=== PATIENT | male | born 1960 | race African-American/Black ===

== ENCOUNTER 2021-02-20 14:39 | Emergency (ER) | payer SELFPAY ==
[~2021-02-20] VITALS: Ht 185 cm; Wt 72.7 kg
[~2021-02-20 14:39] MED LIST: CODE118S2 PO; NAPR-243 PO
[2021-02-20 14:40] VITALS: BP 149/105
--- NOTE | 2021-02-20 14:54 | ED General ---
General Chief Complaint: General Problems/Pain Stated Complaint: METH INJECTION Source of Information: Patient Exam Limitations: No Limitations History of Present Illness Date Seen by Provider: Feb 20, 2021 Time Seen by Provider: 14:54 Initial Comments Burning in his hands and concerned that his skin looks different on his hands after using methamphetamine. Timing/Duration: 1-2 Days Severity: Moderate Associated Systoms: Denies Symptoms Allergies and Home Medications Allergies Coded Allergies: No Known Drug Allergies (Verified Allergy, Mild, 11/26/09) Home Medications No Active Prescriptions or Reported Meds Patient Home Medication List Home Medication List Reviewed: Yes Review of Systems Review of Systems Constitutional: see HPI EENTM: see HPI Respiratory: no symptoms reported Cardiovascular: no symptoms reported Genitourinary: no symptoms reported Musculoskeletal: no symptoms reported Skin: no symptoms reported Psychiatric/Neurological: No Symptoms Reported Hematologic/Lymphatic: No Symptoms Reported Immunological/Allergic: no symptoms reported Past Whctdsc-Izyhjo-Aqddhs Hx Seasonal Allergies Seasonal Allergies: No Past Medical History Orthopedic Reproductive Disorders: No Physical Exam Vital Signs Capillary Refill : Height, Weight, BMI Height: 6'1" Weight: 190lbs. oz. 86.877129mn; 23.75 BMI Method:Stated General Appearance: No Apparent Distress, WD/WN, Anxious Eyes: Bilateral Eye Normal Inspection, Bilateral Eye PERRL, Bilateral Eye EOMI HEENT: PERRL/EOMI, TMs Normal, Normal ENT Inspection Neck: Full Range of Motion, Normal Inspection Respiratory: No Accessory Muscle Use, No Respiratory Distress Cardiovascular: Regular Rate, Rhythm, Normal Peripheral Pulses Gastrointestinal: Normal Bowel Sounds, Non Tender, Soft Extremity: Normal Inspection, No Calf Tenderness Neurologic/Psychiatric: Alert, Oriented x3 Skin: Normal Color, Warm/Dry Progress/Results/Core Measures Suspected Sepsis SIRS Temperature: Pulse: Respiratory Rate: Blood Pressure / Mean: Results/Orders My Orders Orders - ANALIA LAUREANO APRN Cbc With Automated Diff (02/20/21 14:47) Comprehensive Metabolic Panel (02/20/21 14:47) Vital Signs/I&O Capillary Refill : Departure Impression Primary Impression: Methamphetamine use Disposition: 01 HOME, SELF-CARE Condition: Stable Departure-Patient Inst. Decision time for Depature: 14:54 Referrals: NO,LOCAL PHYSICIAN (PCP) Primary Care Physician Patient Instructions: Drug Abuse Treatment Scripts No Active Prescriptions or Reported Meds ANALIA LAUREANO APRN Feb 20, 2021 14:54
== END 2021-02-20 14:58 | disposition home or self-care (01) ==
LOC: EDUNIT# 14:39 → ER 14:42
DX: F15.90 Other stimulant use, unspecified, uncomplicated (principal)
CPT/HCPCS: 99283

== ENCOUNTER 2021-08-18 08:06 | Emergency (ER) | payer MEDICARE ==
[~2021-08-18] VITALS: Ht 185.5 cm; Wt 74.8 kg
--- NOTE | 2021-08-18 08:24 | ED Integumentary General ---
General Stated Complaint: BUG BITE Source: patient Exam Limitations: no limitations History of Present Illness Date Seen by Provider: Aug 18, 2021 Time Seen by Provider: 08:03 Initial Comments Patient to the ER by EMS from home with chief complaint that he has been in his apartment of the past 3 weeks and has been having a lot of itching and feeling of small bugs or worms on his skin especially on his feet. He has been wearing plastic bags on his feet to try and keep them off of him. He says he does not routinely use recreational methamphetamines as well as he smokes and drinks. He says he went to his doctor at [facility] and they told him that he would have to bring in one of the bugs for them to examine. He has not called an cumulative effects analyst. He says he feels OCD because he has to constantly wash his feet. Allergies and Home Medications Allergies Coded Allergies: No Known Drug Allergies (Verified Allergy, Mild, 11/26/09) Patient Home Medication List Home Medication List Reviewed: Yes No Active Prescriptions or Reported Meds Review of Systems Review of Systems Constitutional: No chills, No diaphoresis EENTM: No ear discharge, No hearing loss Respiratory: No cough, No short of breath Cardiovascular: No chest pain, No palpitations Gastrointestinal: No abdominal pain, No nausea, No vomiting Genitourinary: No discharge, No dysuria Musculoskeletal: No back pain, No joint pain Skin: pruritus, rash All Other Systems Reviewed Negative Unless Noted: Yes Past Xxadjeb-Chnefv-Qyqeta Hx Patient Social History Tobacco Use?: Yes Tobacco type used: Cigarettes Use of E-Cig and/or Vaping dev: No Substance use?: Yes Substance type: Methamphetamine, Marijuana Alcohol Use?: Yes Alcohol type: Hard Liquor Seasonal Allergies Seasonal Allergies: No Past Medical History Orthopedic Reproductive Disorders: No Physical Exam Vital Signs Capillary Refill : General Appearance: WD/WN, no apparent distress HEENT: PERRL/EOMI, pharynx normal Neck: full range of motion, supple, normal inspection Cardiovascular: normal peripheral pulses, regular rate, rhythm Respiratory: no respiratory distress, no accessory muscle use Gastrointestinal: normal bowel sounds, non tender Extremities: normal inspection, normal capillary refill Neurologic/Psychiatric: alert, normal mood/affect, oriented x 3 Skin: other Skin Problem Location: lower extremities (Bilateral feet) Skin Problem Character: other (Dry itchy scaly feet with a small shallow ulcer subacute between the first and second toe on the right foot. Malodorous.) Progress/Results/Core Measures Progress Progress Note : Time: 08:21 Progress Note It is reasonable to treat the patient with topical antifungals. We will give her a couple rounds of permethrin as well. Suspect that this may be some form of psychogenic parasitosis but he certainly does have some superficial tinea pedis but we could attempt to treat and give him some relief of symptoms. Recommended Benadryl for the itching as well. Departure Impression Primary Impression: Tinea pedis of both feet Additional Impression: Scabies Disposition: HOME, SELF-CARE Condition: Stable Departure-Patient Inst. Decision time for Depature: 08:24 Referrals: NO,LOCAL PHYSICIAN (PCP/Family) Primary Care Physician Patient Instructions: Athlete's Foot (DC), Scabies (DC) Add. Discharge Instructions: Apply the foot cream twice a day just a small pea-sized amount to where it completely rubs into the skin and disappears. Apply permethrin from the neck down to your toes at night and wear it for about 8 hours. In the morning you can shower it off. Repeat the application of permethrin in 2 weeks. Clean your house, wash her linens and dry on normal settings. Consider consultation with a cumulative effects analyst. If you would like help discontinuing your use of methamphetamines you can contact [facility] as they have addiction medicine doctors available to assist you. Scripts Permethrin (Permethrin) 60 Gm Cream..g. 60 GM TP ONCE for 14 Days, #2 EA 0 Refills Prov: KAREN STACK 08/18/21 Clotrimazole (Lotrimin AF) 12 Gm Cream..g. 12 GM TP BID for 30 Days, #2 EA 0 Refills Prov: KAREN STACK 08/18/21 KAREN STACK Aug 18, 2021 08:24
[2021-08-18] MEDS ORDERED: CLOT12CR TP (08:27)
[2021-08-18] MEDS ORDERED: PERM60CR4 TP (08:27)
[2021-08-18 08:35] VITALS: BP 161/86
== END 2021-08-18 08:35 | disposition home or self-care (01) ==
LOC: EDUNIT# 08:06 → ER 08:07
DX: B35.3 Tinea pedis (principal); B86 Scabies; Z72.0 Tobacco use
CPT/HCPCS: 99283

== ENCOUNTER 2021-12-13 23:09 | Emergency (ER) | payer MEDICARE ==
[~2021-12-13] VITALS: Ht 185.5 cm; Wt 74.8 kg
[~2021-12-13 23:09] MED LIST changes: +CLOT12CR TP; +PERM60CR4 TP
--- NOTE | 2021-12-14 00:14 | ED Psychosocial ---
General Chief Complaint: Psych/Social Disorder Stated Complaint: HALLUCINATIONS Source: patient History of Present Illness Date Seen by Provider: December 14, 2021 Time Seen by Provider: 00:01 Initial Comments PT ARRIVES VIA EMS PT STATES THAT "SOME YOUNGSTERS ARE HARRASSING ME AND PUTTING BUGS IN MY WINDOWS AND THEY'RE GETTING IN MY CLOTHES AND IN MY SKIN AND THEY'RE IN MY FURNITURE" AND NOW THEY ARE CRAWLING OUT OF HIS SKIN PT POINTS TO PALM AND STATES THAT HE CAN SEE AND FEEL THE WORMS AND BUGS CRAWLING UNDER AND OUT OF HIS SKIN WENT TO THE POLICE DEPT TO GET HELP WITH THE BUGS--"TO STOP THOSE KIDS FROM PU TTING BUGS IN HIS HOUSE"-- AND EMS WAS CALLED. THEN LATER STATES THAT IT IS WORMS THAT ARE CRAWLING IN HIS SKIN AND COMING OUT AND HE CONSTANTLY HAS TO PULL THEM OUT "LIKE A SHOESTRING THAT JUST KEEPS COMING OUT ALL OVER" AND CONSTANTLY PEEL THEM OFF HIS SKIN AND IT TAKES 2 HOURS TO GET THEM OFF, AND HE HAS TO CLEAN HIS FEET AND HANDS ALL THE TIME OR THEY WOULD BE COVERED WITH THEM. DOES NOT DESCRIBE ITCHING, ONLY A CRAWLING SENSATION STATES HE CAN SEE THE WORMS CRAWL ACROSS HIS BED AND ON THE FLOORS AND THE FURNITURE. PT USES METHAMPHETAMINES AND THC ON DAILY BASIS PT ALSO DRINKS ALCOHOL ON A DAILY BASIS, STATES HE "HAD A LITTLE BIT" TODAY PT HAS BEEN HERE IN ER FOR SAME/SIMILAR SYMPTOMS. WAS GIVEN RXS FOR PERMETHRIN AND CLOTRIMAZOLE ON PRIOR VISIT, BUT DID NOT GET THEM FILLED. STATES HE COULD NOT AFFORD THEM. PCP: [facility]E Allergies and Home Medications Allergies Coded Allergies: No Known Drug Allergies (Verified Allergy, Mild, 11/26/09) Patient Home Medication List Home Medication List Reviewed: Yes Clotrimazole (Lotrimin AF) 12 Gm Cream..g., 12 GM TP BID Prescribed by: KAREN STACK on 08/18/21826 Hydroxyzine Pamoate (Hydroxyzine Pamoate) 50 Mg Capsule, 50 MG PO Q6H PRN for ANXIETY Prescribed by: CAROLANN GRAY on 12/14/21 0046 Permethrin (Permethrin) 60 Gm Cream..g., 60 GM TP ONCE Prescribed by: KAREN STACK on 08/18/21826 Review of Systems Constitutional: no symptoms reported EENTM: no symptoms reported Respiratory: no symptoms reported Cardiovascular: no symptoms reported Gastrointestinal: no symptoms reported Genitourinary: no symptoms reported Musculoskeletal: no symptoms reported Skin: see HPI Psychiatric/Neurological: See HPI Past Ormjoci-Ytolyy-Dvrpwn Hx Patient Social History Tobacco Use?: Yes Tobacco type used: Cigarettes Substance use?: Yes Substance type: Methamphetamine, Marijuana Alcohol Use?: Yes Alcohol Frequency: Daily Seasonal Allergies Seasonal Allergies: No Past Medical History Surgeries: No Respiratory: No Cardiac: No Neurological: No Reproductive Disorders: No Genitourinary: No Gastrointestinal: No Musculoskeletal: No Endocrine: No HEENT: No Cancer: No Psychosocial: Yes (POLYSUBSTANCE ABUSE) Integumentary: No Blood Disorders: No Physical Exam Vital Signs - First Documented 12/14/21 00:00 Temp 36.5 Pulse 94 Resp 20 B/P (MAP) 184/120 (141) Pulse Ox 100 O2 Delivery Room Air Capillary Refill : Height, Weight, BMI Height: 6'1" Weight: 190lbs. oz. 86.148419qf; 21.00 BMI Method:Stated General Appearance: WD/WN, no apparent distress, thin, other (PT IS CALM AND COOPERATIVE. ) HEENT: PERRL/EOMI Neck: normal inspection Respiratory: normal breath sounds Cardiovascular: regular rate, rhythm Gastrointestinal: soft Extremities: normal inspection, normal capillary refill Neurologic/Psychiatric: no motor/sensory deficits, alert, oriented x 3, other (TACTILE HALLUCINATIONS) Appearance/Memory: no memory impairment Behavior/Eye Contact: cooperative, normal speech Thoughts/Hallucinations: tactile hallucinations Skin: normal color (PT IS BLACK), warm/dry, other (NO EVIDENCE OF ANY SKIN INFESTATION. HAS VERY MINIMAL SCALING TO SOLES OF FEET--PT STATES THESE ARE THE WORMS THAT HE CONSTANTLY HAS TO PEEL OFF HIS SKIN. DOES HAVE A FEW SCABBED SO RES ON LOWER LEGS, WITH EXTENSIVE AREAS OF PINPOINT HYPOPIGMENTATION DIFFUSELY TO BILATERAL LEGS. NO SIGNS OF INFECTION TO SKIN. ) Progress/Results/Core Measures Results/Orders Lab Results Laboratory Tests Test 12/14/21 00:30 12/14/21 01:05 Range/Units White Blood Count 4.9 4.3-11.0 10^3/uL Red Blood Count 3.71 L 4.30-5.52 10^6/uL Hemoglobin 12.6 L 13.3-17.7 g/dL Hematocrit 37 L 40-54 % Mean Corpuscular Volume 98 80-99 fL Mean Corpuscular Hemoglobin 34 25-34 pg Mean Corpuscular Hemoglobin Concent 35 32-36 g/dL Red Cell Distribution Width 12.0 10.0-14.5 % Platelet Count 382 130-400 10^3/uL Mean Platelet Volume 9.0 9.0-12.2 fL Immature Granulocyte % (Auto) 0 % Neutrophils (%) (Auto) 67 42-75 % Lymphocytes (%) (Auto) 21 12-44 % Monocytes (%) (Auto) 6 0-12 % Eosinophils (%) (Auto) 5 0-10 % Basophils (%) (Auto) 1 0-10 % Neutrophils # (Auto) 3.3 1.8-7.8 10^3/uL Lymphocytes # (Auto) 1.0 1.0-4.0 10^3/uL Monocytes # (Auto) 0.3 0.0-1.0 10^3/uL Eosinophils # (Auto) 0.2 0.0-0.3 10^3/uL Basophils # (Auto) 0.0 0.0-0.1 10^3/uL Immature Granulocyte # (Auto) 0.0 0.0-0.1 10^3/uL Sodium Level 142 135-145 MMOL/L Potassium Level 3.6 3.6-5.0 MMOL/L Chloride Level 103 98-107 MMOL/L Carbon Dioxide Level 26 21-32 MMOL/L Anion Gap 13 5-14 MMOL/L Blood Urea Nitrogen 17 7-18 MG/DL Creatinine 1.06 0.60-1.30 MG/DL Estimat Glomerular Filtration Rate 80 BUN/Creatinine Ratio 16 Glucose Level 86 70-105 MG/DL Calcium Level 9.3 8.5-10.1 MG/DL Corrected Calcium 8.9 8.5-10.1 MG/DL Total Bilirubin 1.0 0.1-1.0 MG/DL Aspartate Amino Transf (AST/SGOT) 17 5-34 U/L Alanine Aminotransferase (ALT/SGPT) 11 0-55 U/L Alkaline Phosphatase 61 40-136 U/L Total Protein 7.6 6.4-8.2 GM/DL Albumin 4.5 3.2-4.5 GM/DL Serum Alcohol < 10 <10 MG/DL Urine Opiates Screen NEGATIVE NEGATIVE Urine Oxycodone Screen NEGATIVE NEGATIVE Urine Methadone Screen NEGATIVE NEGATIVE Urine Propoxyphene Screen NEGATIVE NEGATIVE Urine Barbiturates Screen NEGATIVE NEGATIVE Ur Tricyclic Antidepressants Screen NEGATIVE NEGATIVE Urine Phencyclidine Screen NEGATIVE NEGATIVE Urine Amphetamines Screen POSITIVE H NEGATIVE Urine Methamphetamines Screen POSITIVE H NEGATIVE Urine Benzodiazepines Screen NEGATIVE NEGATIVE Urine Cocaine Screen NEGATIVE NEGATIVE Urine Cannabinoids Screen NEGATIVE NEGATIVE My Orders Orders - CAROLANN GRAY DO Drug Screen Stat (Urine) (12/14/21 00:01) Alcohol (12/14/21 00:06) Cbc With Automated Diff (12/14/21 00:06) Comprehensive Metabolic Panel (12/14/21 00:06) Hydroxyzine Cap/Tab (Vistaril) (12/14/21 01:30) Medications Given in ED Current Medications Medications Dose Ordered Sig/Suze Route Start Time Stop Time Status Last Admin Dose Admin Hydroxyzine Pamoate 50 mg ONCE ONCE PO 12/14/21 01:30 12/14/21 01:31 DC 12/14/21 01:37 50 MG Vital Signs/I&O 12/14/21 12/14/21 00:00 01:35 Temp 36.5 36.3 Pulse 94 88 Resp 20 16 B/P (MAP) 184/120 (141) 164/100 Pulse Ox 100 100 O2 Delivery Room Air Room Air Progress Progress Note : Progress Note PT CONSTANTLY PICKING AT SKIN AND STATING HE CAN SEE THE WORMS CRAWLING OUT OF HIS SKIN AND THAT HE IS PULLING THEM OUT NOW. THERE ARE NO VISIBLE INSECTS /WORMS, ETC. ANYWHERE ON PATIENT OR HIS CLOTHING. Departure Impression Primary Impression: PSYCHOGENIC PARASITOSIS Additional Impressions: Methamphetamine use Alcohol abuse Delusions of parasitosis Disposition: HOME, SELF-CARE Condition: Stable Departure-Patient Inst. Decision time for Depature: 01:30 Referrals: [facility] Patient Instructions: ALCOHOL AND SUBSTANCE ABUSE, Drug Abuse and Drug Addicti on (DC), Methamphetamine Add. Discharge Instructions: FOLLOW UP WITH [facility] THIS WEEK FOR FURTHER CARE. All discharge instructions reviewed with patient and/or family. Voiced understanding. Scripts Hydroxyzine Pamoate (Hydroxyzine Pamoate) 50 Mg Capsule 50 MG PO Q6H PRN for ANXIETY, #15 CAP Prov: CAROLANN GRAY DO 12/14/21 CAROLANN GRAY DO December 14, 2021 00:14
[2021-12-14 00:44] LABS: BASOPHILS % (AUTO) 1 % (0-10); EOSINOPHILS # (AUTO) 0.2 10^3/uL (0.0-0.3); EOSINOPHILS % (AUTO) 5 % (0-10); HEMATOCRIT 37 % (40-54); HEMOGLOBIN 12.6 g/dL (13.3-17.7); LYMPHOCYTES % (AUTO) 21 % (12-44); MEAN CORPUSCULAR HEMOGLOBIN 34 pg (25-34); MEAN CORPUSCULAR HGB CONC 35 g/dL (32-36); MEAN CORPUSCULAR VOLUME 98 fL (80-99); MONOCYTES # (AUTO) 0.3 10^3/uL (0.0-1.0); MONOCYTES % (AUTO) 6 % (0-12); NEUTROPHILS # (AUTO) 3.3 10^3/uL (1.8-7.8); NEUTROPHILS % (AUTO) 67 % (42-75); PLATELET COUNT 382 10^3/uL (130-400); WHITE BLOOD COUNT 4.9 10^3/uL (4.3-11.0)
[2021-12-14] MEDS ORDERED: HYDR50CA3 PO (00:46)
[2021-12-14 00:55] LABS: ALBUMIN 4.5 GM/DL (3.2-4.5); CHLORIDE 103 MMOL/L (98-107); POTASSIUM 3.6 MMOL/L (3.6-5.0); SODIUM 142 MMOL/L (135-145)
[2021-12-14 00:57] LABS: CALCIUM 9.3 MG/DL (8.5-10.1)
[2021-12-14 00:58] LABS: GLUCOSE 86 MG/DL (70-105); TOTAL PROTEIN 7.6 GM/DL (6.4-8.2)
[2021-12-14 00:59] LABS: CARBON DIOXIDE 26 MMOL/L (21-32)
[2021-12-14 01:01] LABS: ALKALINE PHOSPHATASE 61 U/L (40-136); CREATININE SERUM 1.06 MG/DL (0.60-1.30); GFR ESTIMATED 80
[2021-12-14 01:02] LABS: BUN/CREATININE RATIO 16
[2021-12-14 01:04] LABS: ALANINE AMINOTRANSFERASE 11 U/L (0-55)
[2021-12-14 01:25] LABS: AMPHETAMINE SCREEN, URINE POSITIVE (NEGATIVE); BARBITURATE SCREEN URINE NEGATIVE (NEGATIVE); BENZODIAZEPINES SCREEN URINE NEGATIVE (NEGATIVE); CANNABINOID SCREEN, URINE NEGATIVE (NEGATIVE); COCAINE SCREEN URINE NEGATIVE (NEGATIVE); METHADONE STAT NEGATIVE (NEGATIVE); OPIATE SCREEN URINE NEGATIVE (NEGATIVE); OXYCODONE STAT NEGATIVE (NEGATIVE); PROPOXYPHENE STAT NEGATIVE (NEGATIVE); TRICYCLIC ANTIDEPRESSANTS SCRE NEGATIVE (NEGATIVE)
[2021-12-14] MEDS ORDERED: hydrOXYzine (VISTARIL/ATARAX) 25 MG capsule/tablet PO ONE (01:30)
[2021-12-14 01:35] VITALS: BP 164/100
== END 2021-12-14 01:40 | disposition home or self-care (01) ==
LOC: EDUNIT# 23:09 → ER 23:11
DX: R44.3 Hallucinations, unspecified (principal); F06.2 Psychotic disorder with delusions due to known physiological condition; F10.10 Alcohol abuse, uncomplicated; F15.10 Other stimulant abuse, uncomplicated; F17.210 Nicotine dependence, cigarettes, uncomplicated; Y90.0 Blood alcohol level of less than 20 mg/100 ml
CPT/HCPCS: 80053; 80306; 85025; 99283; G0480; 36415; 80320

== ENCOUNTER 2022-02-01 10:20 | Emergency (ER) | payer MEDICARE ==
[~2022-02-01] VITALS: Ht 185 cm; Wt 79.3 kg
[~2022-02-01 10:20] MED LIST changes: +HYDR50CA3 PO
--- NOTE | 2022-02-01 11:26 | ED Psychosocial ---
General Chief Complaint: Substance Abuse Stated Complaint: HALLUCINATIONS Nursing Triage Note: PT PRESENTS TO ED VIA EMS FROM HOME WITH COMPLAINTS OF VISUAL HALLUCINATIONS OF MEAL WORMS CRAWLING OUT OF HIS VENTS AND ON HIS HEAD. WHEN PT WAS INFORMED THAT HE DID NOT HAVE ANY BUGS/WORMS ON HIS HEAD BY EMS HE REPORTED TO THEM HE MUST BE "TRIPPING" BECAUSE HE SMOKED METH YESTERDAY. PT REPORTS HE CURRENTLY HAS NO COMPLAINTS AND FEELS "REBORN." (ZO ED ANDA) History of Present Illness Date Seen by Provider: Feb 01, 2022 Time Seen by Provider: 11:00 Initial Comments 61 year old male presents via EMS. Patient reports visual hallucinations upon awakening this morning, he felt as though he could see bugs and worms on his head and a/c vents. He reports using methamphetamines yesterday, he verbalizes that he had anxiety but is now aware that there were not bugs. He denies any current visual or auditory hallucinations. He denies any thoughts to harm himself or others. At this point he is requesting discharge from the emergency department if he has no acute health issues. patient is calm and agreeable to exam. He has no complaints at this time. Timing/Duration: this morning Severity: mild Associated Symptoms: denies symptoms (ZO DE ANDA) Allergies and Home Medications Allergies Coded Allergies: No Known Drug Allergies (Verified Allergy, Mild, 11/26/09) Patient Home Medication List Home Medication List Reviewed: Yes (ZO DE ANDA) Clotrimazole (Lotrimin AF) 12 Gm Cream..g., 12 GM TP BID Prescribed by: KAREN STACK on 08/18/21826 Hydroxyzine Pamoate (Hydroxyzine Pamoate) 50 Mg Capsule, 50 MG PO Q6H PRN for ANXIETY Prescribed by: CAROLANN GRAY on 12/14/21 0046 Permethrin (Permethrin) 60 Gm Cream..g., 60 GM TP ONCE Prescribed by: KAREN STACK on 08/18/21826 Review of Systems Constitutional: no symptoms reported, see HPI Psychiatric/Neurological: See HPI, Anxiety (earlier today) (ZO DE ANDA) All Other Systems Reviewed Negative Unless Noted: Yes (ZO DE ANDA) Past Xtoehgd-Rimoye-Fjewpq Hx Patient Social History Tobacco Use?: Yes Tobacco type used: Cigars Smoking Status: Current Someday Smoker Substance use?: Yes Substance type: Methamphetamine Alcohol Use?: Yes Alcohol type: Hard Liquor Alcohol Frequency: Once in a while Pt feels they are or have been: No (ZO DE ANDA) Immunizations Up To Date First/Initial COVID19 Vaccinat: 2020 Second COVID19 Vaccination Gato: 2020 Third COVID19 Vaccination Date: N/A (ZO DE ANDA) Seasonal Allergies Seasonal Allergies: No (ZO DE ANDA) Past Medical History Surgery/Hospitalization HX: HTN Surgeries: No Respiratory: No Cardiac: No Neurological: No Reproductive Disorders: No Genitourinary: No Gastrointestinal: No Musculoskeletal: No Endocrine: No HEENT: No Cancer: No Psychosocial: Yes (POLYSUBSTANCE ABUSE) Integumentary: No Blood Disorders: No (ZO DE ANDA) Family Medical History Reviewed Nursing Family Hx (ZO DE ANDA) Physical Exam Vital Signs - First Documented 02/01/22 10:37 Temp 35.9 Pulse 108 Resp 16 B/P (MAP) 164/104 (124) Pulse Ox 97 (VLAD HOFFMANN MD) Capillary Refill : Less Than 3 Seconds (OZ DE ANDA) Height, Weight, BMI Height: 6'1" Weight: 190lbs. oz. 86.157630uy; 23.00 BMI Method:Stated General Appearance: WD/WN, no apparent distress HEENT: PERRL/EOMI, normal ENT inspection, TMs normal, pharynx normal Neck: non-tender, full range of motion, supple, normal inspection Respiratory: chest non-tender, lungs clear, normal breath sounds Cardiovascular: normal peripheral pulses, regular rate, rhythm Gastrointestinal: normal bowel sounds, non tender, soft Neurologic/Psychiatric: no motor/sensory deficits, alert, normal mood/affect, oriented x 3 Appearance/Memory: appropriate appearance, appropriate insight, neat Behavior/Eye Contact: cooperative, good eye contact Thoughts/Hallucinations: normal thought pattern Skin: normal color, warm/dry (ZO DE ANDA) Suicide Risk Suicide Riks Low Suicide Risk Level []Suicidal Ideation WITHOUT method, intent, plan or behavior more than a month ago []]Modifiable risk factors and strong protective factors []No reported history of suicidal ideation or behavior []Patient reports/exhibits symptoms consistent with psychosis []Patient reports a plan that would be unrealistic/impossible to complete and intent []Suicide attempt prior to arrival (Indicates at LEAST Low Suicide Risk, consider other risk factors) Moderate Suicide Risk Level: []Suicidal ideation with method, WITHOUT plan, intent or behavior in the past month []Multiple risk factors and few protective factors []Patient reports intent to follow through on plan to end life if allowed to leave hospital, and has attempted to elope from the hospital High Suicide Risk Level: [] Suicidal ideation with intent or intent with a plan in the past month [] Patient has harmed self or attempted suicide while in the hospital [] Patient has hx of or current Command Auditory hallucinations to harm self or others that they follow without hesitation [] Patient refuses to disclose plan, and indicates intent to complete [] Patient reports plan that is possible to accomplish and/or has means to complete Risk factors supporting recommendation: [] Non-compliance with treatment (acute or chronic) [] Patient has access to or owns firearms and/or stockpiled medications [] Hx Impulsive behavior [] Pending incarceration or homelessness [] Sexual abuse [] Family history and/or exposure to suicide [] Adverse childhood experiences [] Exposure to violence or negative socio-political cultural, and economic forces [] Current or hx of substance use/abuse [] Chronic physical pain or other acute medical problem (AIDS, COPD, Cancer, etc) [] Perceived burden on family or others [] Patient has attempted to elope [] Unable to answer and/or unable to identify [] Refuses to agree to a safety plan Protective Factors supporting recommendation: [] Identifies reasons for living [] Future plans/goals [] Engaged in work or School [] Good family support network [] Good social support network [] Responsibility to family [] Belief that suicide is immoral, against their protestant beliefs [] High spirituality and involvement in advent community [] Fear of or dying due to pain and suffering [] Established outpt psychiatric services [] Unable to answer and/or unable to identify (ZO DE ANDA) Progress/Results/Core Measures Results/Orders Vital Signs/I&O 02/01/22 02/01/22 10:37 12:05 Temp 35.9 Pulse 108 80 Resp 16 18 B/P (MAP) 164/104 (124) 157/119 Pulse Ox 97 97 (VLAD HOFFMANN MD) Blood Pressure Mean: 124 Departure Impression Primary Impression: Methamphetamine use Disposition: 01 HOME, SELF-CARE Condition: Improved Departure-Patient Inst. Decision time for Depature: 11:20 (ZO DE ANDA) Referrals: [facility],LOCAL PHYSICIAN (PCP) Primary Care Physician Patient Instructions: Drug Abuse and Drug Addiction (DC) Add. Discharge Instructions: Increase water intake today and tomorrow. Follow-up with your primary care provider regarding your blood pressure. Consider rehab or discontinue use of methamphetamines. Return to the hospital for emergency needs. All discharge instructions reviewed with patient and/or family. Voiced understanding. ATTENDING PHYSICIAN NOTE: I was physically present as attending physician in the emergency department during the care of this patient, but I was not directly involved in the decision making or delivery of care for this patient. (VLAD HOFFMANN MD) ZO DE ANDA Feb 01, 2022 11:26 VLAD HOFFMANN MD Feb 01, 2022 17:11
[2022-02-01 12:05] VITALS: BP 157/119
== END 2022-02-01 12:05 | disposition home or self-care (01) ==
LOC: EDUNIT# 10:20 → ER 10:28
DX: F15.10 Other stimulant abuse, uncomplicated (principal); F17.290 Nicotine dependence, other tobacco product, uncomplicated; Z28.310 Unvaccinated for COVID-19
CPT/HCPCS: 99281

== ENCOUNTER 2022-04-01 15:21 | Emergency (ER) | payer MEDICARE | END 2022-04-01 16:00 | disposition left against medical advice (07) | LOC: EDUNIT# 15:21 → ER 15:25 | DX: M54.2 Cervicalgia (principal); R11.0 Nausea ==

== ENCOUNTER → 2022-07-08 | Emergency (ER) | payer MEDICARE ==
[~2022-07-08] VITALS: Ht 185 cm; Wt 79.3 kg
--- NOTE | 2022-07-08 09:33 | ED General ---
General Chief Complaint: Abdominal/GI Problems Stated Complaint: ABD PAIN Nursing Triage Note: pt presents to ed via pov from home with complaitns of constipation x 2 days. states he had a small bm today and yesterday. pt also reports he thinks his apartment is infested with worm like snakes that have been biting him and getting under his skin. he states he can hear them hissing at night. (DREW PERDOMO) History of Present Illness Date Seen by Provider: Jul 08, 2022 Time Seen by Provider: 09:00 Initial Comments 61 yo male presents to the ED with chief complaint of "worms under his skin". Sa tanisha this has been going on for 8 months and that he somebody he knows is coming into his house and infesting the place with worms. Says that these worms are nocturnal and occur throughout his body especially around areas where there is hair. He says they come off when he scrubs his body but denies any changes to detergents or soap. Denies any itching, redness, skin color changes. Pt has not tried any cream or medications for his sx but endorses meth use to help with the "worms under his skin". No other complaints. (DREW PERDOMO) Allergies and Home Medications Allergies Coded Allergies: No Known Drug Allergies (Verified Allergy, Mild, 11/26/09) Patient Home Medication List Home Medication List Reviewed: Yes (DREW PERDOMO) Clotrimazole (Lotrimin AF) 12 Gm Cream..g., 12 GM TP BID Prescribed by: KAREN STACK on 08/18/21826 Hydroxyzine Pamoate (Hydroxyzine Pamoate) 50 Mg Capsule, 50 MG PO Q6H PRN for ANXIETY Prescribed by: CAROLANN GRAY on 12/14/21 0046 Permethrin (Permethrin) 60 Gm Cream..g., 60 GM TP ONCE Prescribed by: KAREN STACK on 08/18/21826 Review of Systems Review of Systems Constitutional: No chills, No diaphoresis, No dizziness, No fever, No malaise, No weakness EENTM: no symptoms reported Respiratory: No cough, No dyspnea on exertion, No short of breath Cardiovascular: No chest pain, No palpitations Gastrointestinal: No abdominal pain, No constipation, No diarrhea, No dysphagia, No hematemesis Genitourinary: no symptoms reported Musculoskeletal: no symptoms reported Skin: No change in color, No change in hair/nails, No dryness, No lesions, No lumps, No pruritus, No rash; other ("worms under the skin") Psychiatric/Neurological: Other ("Pt says he has no psychiatric diagnosis") Hematologic/Lymphatic: No Symptoms Reported Immunological/Allergic: no symptoms reported Hard to get accurate ROS based on patients current hallucinogenic state (DREW PERDOMO) Past Nwfytkr-Yeuavl-Cskymb Hx Patient Social History Tobacco Use?: Yes Tobacco type used: Cigars Smoking Status: Current Everyday Smoker Smokeless Tobacco Frequency: Never a User Substance use?: Yes Substance type: Methamphetamine Alcohol Use?: Yes Alcohol type: Hard Liquor Alcohol Frequency: Daily Pt feels they are or have been: No (DREW PERDOMO) Immunizations Up To Date First/Initial COVID19 Vaccinat: 2020 Second COVID19 Vaccination Gato: 2020 Third COVID19 Vaccination Date: N/A (DREW PERDOMO) Seasonal Allergies Seasonal Allergies: No (DREW PERDOMO) Past Medical History Surgery/Hospitalization HX: HTN Surgeries: No Respiratory: No Cardiac: No Neurological: No Reproductive Disorders: No Genitourinary: No Gastrointestinal: No Musculoskeletal: No Endocrine: No HEENT: No Cancer: No Psychosocial: Yes (POLYSUBSTANCE ABUSE) Integumentary: No Blood Disorders: No (DREW PERDOMO) Physical Exam Vital Signs Vital Signs - First Documented 07/08/22 08:39 Temp 35.8 Pulse 94 Resp 18 B/P (MAP) 175/118 (137) Pulse Ox 100 (SAIRA BOX MD) Vital Signs Capillary Refill : Less Than 3 Seconds (DREW PERDOMO) Height, Weight, BMI Height: 6'1" Weight: 190lbs. oz. 86.332383ht; 23.00 BMI Method:Stated General Appearance: No Apparent Distress, WD/WN HEENT: PERRL/EOMI, TMs Normal, Normal ENT Inspection, Pharynx Normal, Scleral Icterus (L), Scleral Icterus (R) Neck: Full Range of Motion, Normal Inspection, Non Tender, Supple Respiratory: Chest Non Tender, Lungs Clear, Normal Breath Sounds, No Accessory Muscle Use, No Respiratory Distress Cardiovascular: Regular Rate, Rhythm, No Edema, No Gallop, No JVD, No Murmur, Normal Peripheral Pulses Gastrointestinal: Normal Bowel Sounds, No Organomegaly, No Pulsatile Mass, Non Tender, Soft Back: Normal Inspection, No CVA Tenderness, No Vertebral Tenderness Extremity: Normal Capillary Refill, Normal Inspection, Normal Range of Motion, Non Tender Neurologic/Psychiatric: Alert, Oriented x3, No Motor/Sensory Deficits, Normal 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, 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, Other (Hallucinogenic state ) Skin: Normal Color, Warm/Dry Lymphatic: No Adenopathy (DREW PERDOMO) Progress/Results/Core Measures Suspected Sepsis SIRS Temperature: Pulse: 94 Respiratory Rate: 18 Blood Pressure 175 /118 Mean: 137 (DREW PERDOMO) Results/Orders Vital Signs/I&O 07/08/22 08:39 Temp 35.8 Pulse 94 Resp 18 B/P (MAP) 175/118 (137) Pulse Ox 100 (SAIRA BOX MD) Vital Signs/I&O Capillary Refill : Less Than 3 Seconds (DREW PERDOMO) Blood Pressure Mean: 137 Progress Note : Time: 09:50 Progress Note Patient seen and examined by me I have reviewed the medical student's note and agree with HPI and physical exam. 61-year-old male long history of methamphetamine use, psychogenic parasitosis. Presents with similar complaints as previous. Concerned for "worms" that are along white strips that he is continuously pulling out of his body. Patient adamantly denies any history of mental health issues. He has never been to [facility]. He denies fevers, chills, nausea vomiting. He is not short of breath or having any pain. He is concerned about needing a "report" for the police so that he can have the people who are placing these worms under his skin arrested. No suicidal or homicidal thoughts. No other hallucinations are reported. He is quite defensive when it is suggested that these are hallucinations or possibly related to his methamphetamine use. Physical exam is unremarkable. Skin is soft, no open wounds. Almost of vitiligo type pattern to the skin. Heart is regular, respirations are even and nonlabored. It is notable that he has quite elevated blood pressure in the 160s over 120 range. He denies using any medications for hypertension. 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 Plan of care: Patient will be referred to [facility] health. I am going to suggest some chye-ngl-evvspsg change to his creams and lotions that he uses. No clinical or objective findings to warrant laboratory studies or other imaging. (SAIRA BOX MD) Departure Impression Primary Impression: psychogenic parasitosis Additional Impressions: History of methamphetamine use Elevated blood pressure reading Disposition: 01 HOME, SELF-CARE Condition: Stable Departure-Patient Inst. Decision time for Depature: 09:53 (SAIRA BOX MD) Referrals: [facility] [place] PHYSICIAN (PCP) Primary Care Physician Patient Instructions: High Blood Pressure ED Add. Discharge Instructions: You need to follow-up with [facility] for long-term management and further evaluation of the worms under your skin. Also you likely need a Blood Pressure pill. You can get khwv-jbu-lwrcnvv CLOTRIMAZOLE OINTMENT which can help with the worms. Also change your lotion to EUCERIN CREAM. DO NOT bathe more than twice a day. Use a gentle soap such as Jamarcus and Jamarcus. This may prevent the worms from being attracted to your skin. Benadryl 1-2 pills as needed if you have itching. Do not do Meth, this can worsen the problem also. Return to the emergency department for any new, concerning or emergent c omplaints. Verification and Attestation of Medical Student E/M Service A medical student performed and documented this service in my presence. I reviewed and verified all information documented by the medical student and made modifications to such information, when appropriate. I personally performed the physical exam and medical decision making. Saira Box, Jul 08, 2022,09:56 (SAIRA BOX MD) DREW PERDOMO Jul 08, 2022 09:33 SAIRA BOX MD Jul 08, 2022 09:56
[2022-07-08 10:03] VITALS: BP 170/106
== END ==
LOC: EDUNIT# 08:27 → ER 08:31
DX: F22 Delusional disorders (principal); I10 Essential (primary) hypertension; F17.290 Nicotine dependence, other tobacco product, uncomplicated; Z87.898 Personal history of other specified conditions
CPT/HCPCS: 99281

== ENCOUNTER 2022-07-27 14:27 | Emergency (ER) | payer MEDICARE ==
[~2022-07-27] VITALS: Ht 185 cm; Wt 80.0 kg
[2022-07-27 14:39] VITALS: BP 155/99
--- NOTE | 2022-07-27 15:00 | ED General ---
General Chief Complaint: Head/Cervical Problems Stated Complaint: FALL Nursing Triage Note: PT ARRIVED PER EMS, PT STATES HIT HEAD. PT ON DOOR FACING, PT HAS TOWEL ON TOP OF HEAD NO REDNESS, OR ABRASION NOTED. PT IS VERY ANXIOUS, STATES JUST GOT ANXIOUS AND CALLED EMS. PT DENIES LOC OR PAIN AT THIS X. PROVIDER IN ROOM TO SPEAK TO PT. PT ON PHONE UPON ARRIVAL AND STAYS ON PHONE SINCE ADMISSION, STATES IS SPEAKING TO . History of Present Illness Date Seen by Provider: Jul 27, 2022 Time Seen by Provider: 14:30 Initial Comments 61-year-old male presents for panic attack after falling. He reports losing his balance falling and hitting her right side of his head on the door jam. He called EMS. During assessment patient is on the phone with his . He reports he is fine and would like to be discharged. He is cooperative and has no complaints of headache or other concerns. He is on no medications. He has no abrasions or lacerations. Timing/Duration: 1/2 Hour Associated Systoms: Denies Symptoms Allergies and Home Medications Allergies Coded Allergies: No Known Drug Allergies (Verified Allergy, Mild, 11/26/09) Patient Home Medication List Home Medication List Reviewed: Yes Clotrimazole (Lotrimin AF) 12 Gm Cream..g., 12 GM TP BID Prescribed by: KAREN STACK on 08/18/21826 Hydroxyzine Pamoate (Hydroxyzine Pamoate) 50 Mg Capsule, 50 MG PO Q6H PRN for ANXIETY Prescribed by: CAROLANN GRAY on 12/14/21 0046 Permethrin (Permethrin) 60 Gm Cream..g., 60 GM TP ONCE Prescribed by: KAREN STACK on 08/18/21826 Review of Systems Review of Systems Constitutional: no symptoms reported, see HPI Respiratory: no symptoms reported, see HPI Cardiovascular: no symptoms reported, see HPI Genitourinary: no symptoms reported, see HPI Musculoskeletal: no symptoms reported, see HPI Skin: no symptoms reported, see HPI All Other Systems Reviewed Negative Unless Noted: Yes Past Rblslpv-Lpcsbb-Jcmurw Hx Patient Social History Tobacco Use?: Yes Tobacco type used: Cigarettes Smoking Status: Current Everyday Smoker Substance use?: No Alcohol Use?: Yes Alcohol type: Hard Liquor Alcohol Frequency: Daily Pt feels they are or have been: No Immunizations Up To Date First/Initial COVID19 Vaccinat: 2020 Second COVID19 Vaccination Gato: 2020 Third COVID19 Vaccination Date: N/A Seasonal Allergies Seasonal Allergies: No Past Medical History Surgery/Hospitalization HX: HTN Surgeries: No Respiratory: No Cardiac: No Neurological: No Reproductive Disorders: No Genitourinary: No Gastrointestinal: No Musculoskeletal: No Endocrine: No HEENT: No Cancer: No Psychosocial: Yes (POLYSUBSTANCE ABUSE) Integumentary: No Blood Disorders: No Family Medical History Reviewed Nursing Family Hx Physical Exam Vital Signs Vital Signs - First Documented 07/27/22 14:30 Temp 36.2 Pulse 87 Resp 18 B/P (MAP) 155/99 (117) Pulse Ox 98 Capillary Refill : Less Than 3 Seconds Height, Weight, BMI Height: 6'1" Weight: 190lbs. oz. 86.999322gg; 23.00 BMI Method:Stated General Appearance: No Apparent Distress, WD/WN, Anxious Eyes: Bilateral Eye Normal Inspection, Bilateral Eye PERRL, Bilateral Eye EOMI HEENT: PERRL/EOMI, TMs Normal, Normal ENT Inspection, Pharynx Normal Neck: Full Range of Motion, Normal Inspection, Non Tender, Supple Respiratory: Chest Non Tender, Lungs Clear, Normal Breath Sounds Cardiovascular: Regular Rate, Rhythm, No Edema, No Murmur, Normal Peripheral Pulses Gastrointestinal: Normal Bowel Sounds, Non Tender, Soft Neurologic/Psychiatric: Alert, Oriented x3, No Motor/Sensory Deficits Skin: Normal Color, Warm/Dry Progress/Results/Core Measures Suspected Sepsis SIRS Temperature: Pulse: 87 Respiratory Rate: 18 Blood Pressure 155 /99 Mean: 117 Results/Orders Vital Signs/I&O 07/27/22 07/27/22 14:30 14:39 Temp 36.2 36.2 Pulse 87 87 Resp 18 18 B/P (MAP) 155/99 (117) 155/99 Pulse Ox 98 98 Capillary Refill : Less Than 3 Seconds Blood Pressure Mean: 117 Progress Note : Time: 14:30 Progress Note Patient seen and evaluated. Patient declined need for any medications or further assessments 1439 patient came out of exam room and reports he wants to leave, will not wait for paperwork or discharge. Signed AMA. Stated he needs to walk to his 's work. He then stated "there is a cyber attack. I see the red beam" Offered to re-assess, but patient requested discharge. Encouraged to return, if he has further concerns. Departure Impression Primary Impression: Fall Qualified Codes: W19.XXXA - Unspecified fall, initial encounter Additional Impression: Panic attack Disposition: AGAINST MEDICAL ADVICE Condition: Stable Departure-Patient Inst. Decision time for Depature: 14:39 Referrals: NO,LOCAL PHYSICIAN (PCP) Primary Care Physician ZO DE ANDA Jul 27, 2022 15:00
== END 2022-07-27 14:39 | disposition left against medical advice (07) ==
LOC: EDUNIT# 14:27 → ER 14:29
DX: Z04.3 Encounter for examination and observation following other accident (principal); F41.0 Panic disorder [episodic paroxysmal anxiety]; F17.210 Nicotine dependence, cigarettes, uncomplicated; W01.198A Fall on same level from slipping, tripping and stumbling with subsequent striking against other object, initial encounter
CPT/HCPCS: 99283

== ENCOUNTER 2022-09-22 07:40 | Emergency (ER) | payer MEDICARE | END 2022-09-22 08:10 | disposition left against medical advice (07) | LOC: EDUNIT# 07:40 → ER 07:42 | DX: R69 Illness, unspecified (principal) ==

== ENCOUNTER 2022-10-04 13:39 | Emergency (ER) | payer MEDICARE ==
[~2022-10-04] VITALS: Ht 185 cm; Wt 75.0 kg
[2022-10-04 13:41] VITALS: BP 179/98
== END 2022-10-04 13:52 | disposition left against medical advice (07) ==
LOC: EDUNIT# 13:39 → ER 13:40
DX: R03.0 Elevated blood-pressure reading, without diagnosis of hypertension (principal)
CPT/HCPCS: 99283

== ENCOUNTER 2022-10-10 13:39 | Emergency (ER) | payer MEDICARE ==
[~2022-10-10] VITALS: Ht 185 cm; Wt 77.0 kg
[2022-10-10 14:00] VITALS: BP 139/77
--- NOTE | 2022-10-10 14:58 | ED Integumentary General ---
General Chief Complaint: Bite-Animal/Human/Insect Stated Complaint: PAIN IN BOTH FEET Nursing Triage Note: Patient ambulatory to ER w c/o bug bites to both feet and legs. 05/07 pain level. Source: patient Exam Limitations: no limitations History of Present Illness Date Seen by Provider: Oct 10, 2022 Time Seen by Provider: 14:53 Initial Comments Patient is a 61-year-old male who presents to the emergency department today with a chief complaint of concern for bugs under his skin causing pain in his feet. He also complains of them in his arms and hands, scalp as well. He has had previous visits to the ER for the similar complaint. He does not follow with a primary care physician, does not have any mental health support. He is insistent that there are things coming out of his skin related to the carpet in his home. He has been treated here in the past for scabies. He continues to complain of discomfort and pain. I asked about lotions and creams he states nothing works. He is insistent that he sees little white "strings" that he can pull out of his skin related to the bugs. Complains of significant pain to his feet. He states Tylenol and ibuprofen do not help his symptoms. He is quite agitated and frustrated. No other complaints of fevers, chills, cough. No urinary or GI complaints. Timing/Duration: getting worse Severity: severe Location: scalp, face, hands, feet, extremities, genitalia Possible Cause: other ("bigs in the carpet") Associated Symptoms: change in skin texture (per patient) Allergies and Home Medications Allergies Coded Allergies: No Known Drug Allergies (Verified , 11/26/09) Patient Home Medication List Home Medication List Reviewed: Yes Clotrimazole (Lotrimin AF) 12 Gm Cream..g., 12 GM TP BID Prescribed by: KAREN STACK on 08/18/21 0868 Hydroxyzine Pamoate (Hydroxyzine Pamoate) 50 Mg Capsule, 50 MG PO Q6H PRN for ANXIETY Prescribed by: CAROLANN GRAY on 12/14/21 0046 Naproxen (Naprosyn) 500 Mg Tablet, 500 MG PO BID Prescribed by: SAIRA BOX on 10/10/22 1512 Permethrin (Permethrin) 60 Gm Cream..g., 60 GM TP ONCE Prescribed by: KAREN STACK on 08/18/21 0827 Triamcinolone Acetonide (Triamcinolone Acetonide 0.025% Ointment) 0.025 % Oint...g., 1 APPLIC TP DAILY Prescribed by: SAIRA BOX on 10/10/22 1512 Review of Systems Review of Systems Constitutional: see HPI EENTM: no symptoms reported Respiratory: no symptoms reported Cardiovascular: no symptoms reported Gastrointestinal: no symptoms reported Genitourinary: no symptoms reported Musculoskeletal: joint pain (Pain in both feet at the forefoot) Skin: lesions, other (Complains of rash) All Other Systems Reviewed Negative Unless Noted: Yes Past Hhymfnr-Begflf-Jgkpvl Hx Patient Social History Tobacco Use?: Yes Tobacco type used: Cigars Smoking Status: Current Everyday Smoker Substance use?: Yes Substance type: Methamphetamine Alcohol Use?: Yes Alcohol Frequency: Daily Immunizations Up To Date First/Initial COVID19 Vaccinat: unknown Second COVID19 Vaccination Gato: 2020 Third COVID19 Vaccination Date: N/A COVID19 Vaccine 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 Seasonal Allergies Seasonal Allergies: No Past Medical History Surgery/Hospitalization HX: HTN Surgeries: No Respiratory: No Cardiac: No Neurological: No Reproductive Disorders: No Genitourinary: No Gastrointestinal: No Musculoskeletal: No Endocrine: No HEENT: No Cancer: No Psychosocial: Yes (POLYSUBSTANCE ABUSE) Integumentary: No Blood Disorders: No Physical Exam Vital Signs Vital Signs - First Documented 10/10/22 14:00 Temp 36.8 Pulse 118 Resp 16 B/P (MAP) 139/77 (97) Pulse Ox 98 O2 Delivery Room Air Capillary Refill : Less Than 3 Seconds General Appearance: WD/WN, no apparent distress, thin HEENT: PERRL/EOMI Cardiovascular: regular rate, rhythm Respiratory: lungs clear, normal breath sounds, no respiratory distress Extremities: normal range of motion, normal inspection, no pedal edema, no calf tenderness, normal capillary refill Neurologic/Psychiatric: arc cutter II-XII nml as tested, no motor/sensory deficits, alert, normal mood/affect, oriented x 3 Skin: normal color, warm/dry, other (Skin changes consistent with vitiligo. No erythema. No rashes. No lesions concerning for infection.) Progress/Results/Core Measures Results/Orders My Orders Orders - SAIRA BOX MD Triamcinolone 0.025% Cream (Kenalog 0.02 (10/10/22 15:08) Naproxen Tablet (Naprosyn Tablet) (10/10/22 15:15) Vital Signs/I&O 10/10/22 14:00 Temp 36.8 Pulse 118 Resp 16 B/P (MAP) 139/77 (97) Pulse Ox 98 O2 Delivery Room Air Blood Pressure Mean: 97 Progress Progress Note : Time: 15:00 Progress Note Had a discussion with the patient regarding his concern for parasites. Offered a cream, I planned on using a very low-dose triamcinolone. Also naproxen for pain. Patient seemed interested in this treatment however shortly after I talked to him it was noted that he picked up all of his belongings and walked out of the department. I am concerned that he has significant underlying mental health disorder causing his delusions of parasitosis. He will not hear any talk of this. Patient left the department without discharge instructions. Departure Impression Primary Impression: Parasitosis Disposition: AGAINST MEDICAL ADVICE Condition: Against Medical Advice Departure-Patient Inst. Decision time for Depature: 15:10 Referrals: [facility]/CORY MOLINA,LOCAL PHYSICIAN (PCP) Primary Care Physician Patient Instructions: Insect Bites and Stings (DC) Add. Discharge Instructions: Use the triamcinolone cream once a day to the affected areas. Naproxen 1 tablet twice a day with food for the next 5 days for pain. Please call [facility] and schedule a follow-up appointment for further evaluation and management of this skin condition. Come back to the emergency room for any new, concerning or emergent complaints. Scripts Naproxen (Naprosyn) 500 Mg Tablet 500 MG PO BID, #10 TAB 0 Refills Prov: SAIRA BOX MD 10/10/22 Triamcinolone Acetonide (Triamcinolone Acetonide 0.025% Ointment) 0.025 % Oint...g. 1 APPLIC TP DAILY, #80 GM Prov: SAIRA BOX MD 10/10/22 SAIRA BOX MD Oct 10, 2022 14:58
[2022-10-10] MEDS ORDERED: TRIAMCINOLONE 0.025% CR (KENALOG) 15 GM TUBE TOP STA (15:08)
[2022-10-10] MEDS ORDERED: NAPR-1071 PO (15:12)
[2022-10-10] MEDS ORDERED: TRIA80OI TP (15:12)
[2022-10-10] MEDS ORDERED: NAPROXEN 250 MG (NAPROSYN) TABLET PO ONE (15:15)
== END 2022-10-10 15:15 | disposition left against medical advice (07) ==
LOC: EDUNIT# 13:39 → ER 13:42
DX: B89 Unspecified parasitic disease (principal); F17.210 Nicotine dependence, cigarettes, uncomplicated
CPT/HCPCS: 99283

== ENCOUNTER 2022-11-04 19:38 | Emergency (ER) | payer MEDICARE ==
[~2022-11-04] VITALS: Ht 185 cm; Wt 74.0 kg
[~2022-11-04 19:38] MED LIST changes: +NAPR-1071 PO; +TRIA80OI TP
--- NOTE | 2022-11-04 19:45 | ED General ---
General Chief Complaint: General Problems/Pain Stated Complaint: JAYNE FEET SWELLING Source of Information: Patient Exam Limitations: Other (mental health issues) History of Present Illness Date Seen by Provider: Nov 04, 2022 Time Seen by Provider: 19:45 Initial Comments Vamshi is a 61-year-old male who is concerned today about swelling in his feet. He states for the last several weeks he feels like his feet have been swollen. He points to the area of the right great toe as the etiology of most of his pain. He has had several visits to the emergency department in the past for various somatic complaints. He denies fevers, chills, chest pain or shortness of breath. Walking on his feet makes the pain worse. He is concerned that his shoes may be "too tight". Has not taken any medications for the pain. Timing/Duration: 1 Week (1 to 2 weeks) Severity: Moderate Modifying Factors: improves with Other (Walking worsens pain) Associated Systoms: Denies Symptoms Allergies and Home Medications Allergies Coded Allergies: No Known Drug Allergies (Verified , 11/26/09) Patient Home Medication List Home Medication List Reviewed: Yes Clotrimazole (Lotrimin AF) 12 Gm Cream..g., 12 GM TP BID Prescribed by: KAREN STACK on 08/18/21826 Hydroxyzine Pamoate (Hydroxyzine Pamoate) 50 Mg Capsule, 50 MG PO Q6H PRN for ANXIETY Prescribed by: CAROLANN GRAY on 12/14/21 0046 Naproxen (Naprosyn) 500 Mg Tablet, 500 MG PO BID Prescribed by: SAIRA BOX on 10/10/22 151 Permethrin (Permethrin) 60 Gm Cream..g., 60 GM TP ONCE Prescribed by: KAREN STACK on 08/18/2127 Triamcinolone Acetonide (Triamcinolone Acetonide 0.025% Ointment) 0.025 % Oint...g., 1 APPLIC TP DAILY Prescribed by: SAIRA BOX on 10/10/22 151 Review of Systems Review of Systems Constitutional: see HPI EENTM: no symptoms reported Respiratory: no symptoms reported Cardiovascular: no symptoms reported Gastrointestinal: no symptoms reported Genitourinary: no symptoms reported Musculoskeletal: joint pain (Anterior foot pain bilaterally) Skin: no symptoms reported All Other Systems Reviewed Negative Unless Noted: Yes Past Bleczwq-Cubycp-Qpmbjy Hx Immunizations Up To Date First/Initial COVID19 Vaccinat: unknown Second COVID19 Vaccination Gato: 2020 Third COVID19 Vaccination Date: N/A Seasonal Allergies Seasonal Allergies: No Past Medical History Surgery/Hospitalization HX: HTN Surgeries: No Respiratory: No Cardiac: No Neurological: No Reproductive Disorders: No Genitourinary: No Gastrointestinal: No Musculoskeletal: No Endocrine: No HEENT: No Cancer: No Psychosocial: Yes (POLYSUBSTANCE ABUSE) Integumentary: No Blood Disorders: No Physical Exam Vital Signs Vital Signs - First Documented 11/04/22 19:45 Temp 35.9 Pulse 100 Resp 20 B/P (MAP) 155/98 (117) Pulse Ox 99 O2 Delivery Room Air Capillary Refill : Height, Weight, BMI Height: 6'1" Weight: 190lbs. oz. 86.765760su; 22.00 BMI Method:Stated General Appearance: No Apparent Distress, Thin Eyes: Bilateral Eye Normal Inspection, Bilateral Eye PERRL, Bilateral Eye EOMI Respiratory: No Accessory Muscle Use, No Respiratory Distress Cardiovascular: Regular Rate, Rhythm Extremity: Normal Capillary Refill, Normal Inspection, Normal Range of Motion, Non Tender, No Calf Tenderness, No Pedal Edema, Other (Tenderness to palpation over the distal metatarsals of both feet. He has a very large bunion on the right foot. No erythema over the skin of either feet. No edema. Brisk capillary refill.) Neurologic/Psychiatric: Alert, No Motor/Sensory Deficits, Normal Mood/Affect Skin: Normal Color, Warm/Dry Progress/Results/Core Measures Suspected Sepsis SIRS Temperature: Pulse: Respiratory Rate: Blood Pressure / Mean: Results/Orders My Orders Orders - SAIRA BOX MD Naproxen Tablet (Naprosyn Tablet) (11/04/22 20:00) Medications Given in ED Vital Signs/I&O 11/04/22 11/04/22 19:45 20:47 Temp 35.9 Pulse 100 82 Resp 20 18 B/P (MAP) 155/98 (117) 129/90 Pulse Ox 99 97 O2 Delivery Room Air Capillary Refill : Departure Impression Primary Impression: Foot pain, bilateral Additional Impression: Bunion of great toe of right foot Disposition: 01 HOME, SELF-CARE Condition: Stable Departure-Patient Inst. Decision time for Depature: 20:29 Referrals: [facility]/CORY MOLINA,LOCAL PHYSICIAN (PCP) Primary Care Physician Patient Instructions: Bunion Add. Discharge Instructions: Take zitq-zjp-ypdtrfz generic Aleve (naproxen) 2 tablets twice daily as needed for pain. Always take this with food. Wear good supportive shoes that are wide at the toe. For increased swelling, redness or fever please return to the emergency room for reevaluation. Follow up with your primary care doctor. SAIRA BOX MD Nov 04, 2022 19:45
[2022-11-04] MEDS ORDERED: NAPROXEN 250 MG (NAPROSYN) TABLET PO ONE (20:00)
[2022-11-04 20:47] VITALS: BP 129/90
== END 2022-11-04 20:48 | disposition home or self-care (01) ==
LOC: EDUNIT# 19:38 → ER 19:40
DX: M79.672 Pain in left foot (principal); M21.611 Bunion of right foot
CPT/HCPCS: 99283

== ENCOUNTER 2023-01-25 10:06 | Emergency (ER) | payer MEDICARE ==
[~2023-01-25] VITALS: Ht 185.5 cm; Wt 68.0 kg
[2023-01-25] MEDS ORDERED: TETANUS,DIPTH,PERTUSS P/F (BOOSTRIX) 0.5 ML VIAL IM ONE (10:45)
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
--- NOTE | 2023-01-25 11:41 | Diagnostic Imaging Report ---
HISTORY: Right forearm pain TECHNIQUE: 2 views of the right forearm. COMPARISON: None FINDINGS: No acute fracture is seen in the right forearm. Alignment appears normal and joint spaces are preserved. IMPRESSION:. No acute osseous abnormalities seen in the right forearm. Dictated by: Dictated on workstation # [id number]
[2023-01-25] MEDS ORDERED: AUGMENTIN 875 MG TAB (AMOXICILLIN/CLAVULANATE) PO STA (15:26)
[2023-01-25] MEDS ORDERED: AMOX1TAB12 PO (15:31)
[2023-01-25 17:17] VITALS: BP 165/118
== END 2023-01-25 17:17 | disposition home or self-care (01) ==
LOC: EDUNIT# 10:06 → ER 10:09
DX: S02.841A Fracture of lateral orbital wall, right side, initial encounter for closed fracture (principal); S02.31XA Fracture of orbital floor, right side, initial encounter for closed fracture; S02.40CA Maxillary fracture, right side, initial encounter for closed fracture; S02.40EA Zygomatic fracture, right side, initial encounter for closed fracture; S50.11XA Contusion of right forearm, initial encounter; H11.31 Conjunctival hemorrhage, right eye; F17.200 Nicotine dependence, unspecified, uncomplicated; Z23 Encounter for immunization; Y00.XXXA Assault by blunt object, initial encounter; Y92.89 Other specified places as the place of occurrence of the external cause
CPT/HCPCS: 70450; 70486; 73090; 90715

== ENCOUNTER 2023-02-23 07:30 | Emergency (ER) | payer MEDICARE ==
[~2023-02-23] VITALS: Ht 185.5 cm; Wt 74.8 kg
[~2023-02-23 07:30] MED LIST changes: +AMOX1TAB12 PO
[2023-02-23 07:34] VITALS: BP 178/118
[2023-02-23] MEDS ORDERED: SULF1TAB38 PO (07:42)
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
== END 2023-02-23 07:45 | disposition home or self-care (01) ==
LOC: EDUNIT# 07:30 → ER 07:32
DX: L03.116 Cellulitis of left lower limb (principal); Z28.310 Unvaccinated for COVID-19
CPT/HCPCS: 99281